=== PATIENT | male | born 1965 | race Caucasian/White ===

== ENCOUNTER 2020-08-27 07:30 | Observation (INO) ==
[2020-08-27] MEDS ORDERED: HYDROmorphone INJ 1 MG/ML SYRINGE IV STA (07:48)
[2020-08-27] MEDS ORDERED: ONDANSETRON INJ 2 MG/ML 2 ML VIAL IV STA (07:48)
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
[2020-08-27 08:12] LABS: Basophils # (auto) 0.02 K/uL (0-0.2); Basophils % (auto) 0.3 %; Eosinophils # (auto) 0.15 K/uL (0-0.5); Eosinophils % (auto) 2.4 %; Hematocrit (blood only) 42.6 % (42-52); Hemoglobin 15.1 g/dL (14.0-18.0); Immature Granulocytes # (auto) 0.01 K/uL (0.00-0.02); Immature Granulocytes % (auto) 0.2 %; Lymphocytes # (auto) 2.77 K/uL (1.2-3.4); Lymphocytes % (auto) 45.1 %; Mean Corpuscular Hemoglobin 31.6 pg (25-34); Mean Corpuscular Hgb Conc 35.4 g/dL (32-36); Mean Corpuscular Volume 89.1 fL (80-100); Mean Platelet Volume 10.4 fL (7.4-10.4); Monocytes # (auto) 0.62 K/uL (0.11-0.59); Monocytes % (auto) 10.1 %; Neutrophils # (auto) 2.57 K/uL (1.4-6.5); Neutrophils % (auto) 41.9 %; Platelet Count 273 K/uL (130-400); RDW Coefficient of Variation 13.1 % (11.5-14.5); RDW Standard Deviation 42.7 fL (36.4-46.3); Red Blood Count 4.78 M/uL (4.7-6.1); White Blood Count 6.14 K/uL (4.8-10.8)
[2020-08-27 08:31] LABS: Albumin Level 4.1 gm/dl (3.4-5.0); BUN Creatinine Ratio 20.5 (10-20); Calcium 9.4 mg/dl (8.5-10.1); Creatinine Clr Calc Pharmacy 92.2 ml/min; Est GFR (African American) 88.1; Potassium 3.7 mmol/L (3.5-5.1)
[2020-08-27 08:34] LABS: Albumin Globulin Ratio 1.2 (0.9-2); Bilirubin,Total 0.8 mg/dl (0.2-1); Globulin 3.4 gm/dl (2.5-4.0); Total Protein 7.5 gm/dl (6.4-8.2)
--- NOTE | 2020-08-27 08:50 | XRay Report ---
XR shoulder LT min 2V routine CLINICAL HISTORY: Left shoulder pain status post trauma COMPARISON: None. DISCUSSION: No acute fractures or dislocations of the left shoulder are visualized. There are mild de generative changes present. There is equivocal slight left lung interstitial thickening. There is acu te fracture the left eighth rib. IMPRESSION: 1. Acute fracture of the left eighth rib 2. No fractures or dislocations of the left shoulder are visualized ACT 112: Negative or not required by law. Electronically signed by: Codey Carter M.D. 08/27/2020 8:48 AM
[2020-08-27] MEDS ORDERED: OPTIRAY 320 100ml IV ONE (09:13)
[2020-08-27] MEDS: HYDROmorphone INJ 0.5 MG/0.5 ML SYR IV PRN ×3 (09:23→12:34)
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
--- NOTE | 2020-08-27 09:34 | CT Scan Report ---
CT OF THE CHEST WITH IV CONTRAST CLINICAL HISTORY: Left-sided chest pain status post trauma COMPARISON STUDY: No previous studies for comparison. TECHNIQUE: Following the IV administration of 93 mL of Optiray-320, CT of the thorax was performed f rom the thoracic inlet to the lung bases. Images are reviewed in the axial, sagittal, and coronal alma cecilia. IV contrast was administered without complication. A dose lowering technique was utilized adher ing to the principles of ALARA. CT DOSE: 1764.95 mGy.cm FINDINGS: Thyroid: There is a 3 mm left lobe thyroid nodule Thoracic aorta: There is minimal ectasia of descending thoracic aorta which measures 36 mm. There is no CT evidence of acute aortic injury. Pulmonary vasculature: The pulmonary trunk is normal in caliber. There are no central filling defects identified to suggest pulmonary embolus. Note that this examination was not protocoled for the evalu ation of pulmonary emboli. HEART: The heart is mildly enlarged. There are coronary artery calcifications. Lungs and pleural spaces: The lungs and pleural spaces are clear. There is no pneumothorax. There are bilateral dependent pulmonary airspace opacities, likely atelectatic. No pneumothorax is visualized Mediastinum: There is no evidence of pathologic adenopathy. There is no evidence of acute mediastinal hematoma Alesia: There is no evidence of pathologic hilar adenopathy Axilla: There is no evidence of pathologic axillary lymphadenopathy Upper abdomen: Partially visualized upper abdominal viscera is within normal limits. Skeletal structures: There are acute fractures of the left eighth through 11th ribs. IMPRESSION: 1. Acute fractures of the left eighth through 11th ribs 2. No evidence of pneumothorax 3. No CT evidence of mediastinal injury 4. Bilateral dependent pulmonary airspace opacities likely atelectatic ACT 112: Negative or not required by law. Electronically signed by: Codey Carter M.D. 08/27/2020 9:33 AM
[2020-08-27] MEDS ORDERED: LIDOCAINE 5% 1 PATCH TD STA (09:36)
[2020-08-27] MEDS ORDERED: KETOROLAC TROMETHAMINE 15 MG/ML VIAL IV ONE (10:18)
[2020-08-27 10:19] LABS: Appearance Urine Clear (Clear); Bilirubin Urine Negative (Negative); Blood Urine Negative (Negative); Color Urine Yellow; Glucose Urine UA Negative (Negative); Ketones Urine Negative (Negative); Leukocyte Esterase Urine Negative (Negative); Nitrite Urine Negative (Negative); Protein Urine Negative (Negative); Specific Gravity Urine > 1.045 (1.000-1.030); Urobilinogen Urine Negative (Negative)
--- NOTE | 2020-08-27 10:30 | History & Physical Report ---
Date of Service August 27, 2020 Assessment & Plan (1) Multiple rib fractures: CT chest on 08/27 showed acute left 8th through 11th rib fractures. No hemothorax or indication of flail chest. - Patient admitted for pain control: * Ketorolac IV PRN * Percocet PO PRN * Acetaminophen PRN * Lidocaine patch * Ice application - Incentive spirometry - Repeat CXR in the AM to make sure there is no pneumothorax or hemothorax. - Hopeful discharge tomorrow with oral and topical pain medication. (2) Hyperlipidemia: - Continue statin (3) DVT prophylaxis: SCDs - Low DVT risk per admission calculator History of Present Illness Primary Care Provider: Smooth Guerrero MD 54yo M w/ hx of HLD who had a mechanical fall today. He slipped on icy concrete steps and fell on his left side. No loss of consciousness and no striking of his head. He had immediate pain in the left side and presented to the ED. The pain is l argely on the left chest with radiation to the back. Pain medication has improved it. Moving makes it worse. He was noted on chest CT to have 3 left rib fractures. No hemothorax. Not on any blood thinner/anticoagulation. Some subjective shortness of breath from the pain. No dizziness, lightheadedness Allergies Allergy/AdvReac Type Severity Reaction Status Date / Time No Known Allergies Allergy Unverified 08/27/20 07:58 Home Medications Medication Instructions Recorded Confirmed Type ascorbic acid (vitamin C) [Vitamin 100 mg PO DAILY 08/27/20 08/27/20 History C] atorvastatin [Lipitor] 10 mg PO DAILY 08/27/20 08/27/20 History cholecalciferol (vitamin D3) 25 mcg PO DAILY 08/27/20 08/27/20 History [Vitamin D3] fexofenadine [Peace] 180 mg PO DAILY 08/27/20 08/27/20 History multivitamin 1 tab PO DAILY 08/27/20 08/27/20 History turmeric 400 mg PO DAILY 08/27/20 08/27/20 History vitamin B complex 1 tab PO DAILY 08/27/20 08/27/20 History Past Med/Surg History Medical History (Updated 08/27/20 @ 10:28 by Kevin Garrison MD) Allergies Hyperlipidemia Family History (Updated 08/27/20 @ 10:39 by Kevin Garrison MD) Father Prostate cancer Social History Smoking Status: Former smoker Tobacco Type: Cigarettes Preferred Language: [place] Feels Safe at Home: Yes Review of Systems Review of Systems: All systems reviewed & are unremarkable except as noted in HPI & below Physical Exam Constitutional: WD/WN, vitals as above Eyes: EOM intact bilaterally; no conjunctival abnormality ENMT: external ear and nose normal, oropharynx normal Neck: trachea midline, no thyromegaly normal visual inspection Respiratory: normal respiratory effort, lungs clear to auscultation no respiratory distress Cardiovascular: RRR, no murmur, no edema Gastrointestinal (Abdomen): Inspection/Auscultation: abdomen normal to inspection; abdomen not distended Musculoskeletal: no cyanosis or clubbing, extremities motor strength 5/5 Head/Neck/Chest: + chest tenderness (Left side) Skin: no rashes, warm and dry Neurologic: moves all extremities and awake Psychiatric: Orientation: alert, oriented to person and cooperative Results & Data Results & Data ([facility]) Vital Signs (Past 12 Hours) Vital Signs Temp Pulse Resp BP Pulse Ox 08/27/20 10:15 63 29 H 95 08/27/20 09:45 66 23 96 08/27/20 09:30 69 20 138/88 90 08/27/20 09:22 87 L 08/27/20 08:30 139/98 90 08/27/20 08:00 63 30 H 111/77 86 L 08/27/20 07:43 58 L 16 157/90 H 94 08/27/20 07:35 58 L 24 98 08/27/20 07:32 36.8 C 60 24 142/88 H 94 PG Care Time/CCT Total # of Minutes Spent Total Time Spent with Patient: Total time spent is greater than 50% in coordination of care (as documented) at patient's floor/unit and/or counseling patient: Coding Level of Care Code 09510 OBS Care - Level 3 Diagnoses Multiple rib fractures S22.49XA Hyperlipidemia E78.5 DVT prophylaxis Z29.9
[2020-08-27] MEDS ORDERED: ALBUTEROL HFA 8 GM INHALER INH PRN (13:00)
[2020-08-27] MEDS ORDERED: ONDANSETRON INJ 2 MG/ML 2 ML VIAL IV PRN (13:00)
[2020-08-27] MEDS ORDERED: ACETAMINOPHEN 325 MG TAB PO PRN (13:00)
[2020-08-27] MEDS: oxyCODONE/ACETAMINOPHEN 5mg/325mg TAB PO PRN ×2 (15:26→19:22)
[2020-08-27] MEDS: KETOROLAC TROMETHAMINE 15 MG/ML VIAL IV PRN ×2 (16:57→22:56)
[2020-08-28] MEDS: oxyCODONE/ACETAMINOPHEN 5mg/325mg TAB PO PRN ×3 (03:03→15:45)
[2020-08-28 05:53] LABS: Hematocrit (blood only) 37.3 % (42-52); Hemoglobin 12.7 g/dL (14.0-18.0); Mean Corpuscular Hemoglobin 30.9 pg (25-34); Mean Corpuscular Volume 90.8 fL (80-100); Mean Platelet Volume 10.2 fL (7.4-10.4); Platelet Count 234 K/uL (130-400); RDW Coefficient of Variation 13.4 % (11.5-14.5); RDW Standard Deviation 44.5 fL (36.4-46.3); Red Blood Count 4.11 M/uL (4.7-6.1); White Blood Count 7.96 K/uL (4.8-10.8)
[2020-08-28 06:20] LABS: BUN Creatinine Ratio 17.5 (10-20); Calcium 8.8 mg/dl (8.5-10.1); Creatinine Clr Calc Pharmacy 83.3 ml/min; Est GFR (African American) 81.7; Est GFR (Non-African American) 70.5; Potassium 3.8 mmol/L (3.5-5.1)
[2020-08-28] MEDS: KETOROLAC TROMETHAMINE 15 MG/ML VIAL IV PRN ×2 (06:43→12:43)
[2020-08-28] MEDS ORDERED: FEXOFENADINE HCL 180 MG TAB PO SCH (09:00)
[2020-08-28] MEDS ORDERED: lisinopril 10 MG TAB PO SCH (09:00)
[2020-08-28] MEDS ORDERED: ATORVASTATIN 10 MG TAB PO SCH (09:00)
[2020-08-28] MEDS ORDERED: MULTIVITAMIN TAB PO SCH (09:00)
[2020-08-28] MEDS ORDERED: LIDOCAINE 5% 1 PATCH TD SCH (09:00)
[2020-08-28] MEDS ORDERED: CHOLECALCIFEROL 1,000 UNITS 25 MCG TAB PO SCH (09:00)
[2020-08-28] MEDS ORDERED: NON-FORMULARY MEDICATION (Ascorbic Acid (Vitamin C) [Vitamin C] 100 mg Tablet) PO SCH (09:00)
--- NOTE | 2020-08-28 09:13 | XRay Report ---
XR chest 2V PA/lateral HISTORY: Fall. Left-sided chest pain. Rib fractures COMPARISON: Chest CT 08/27/2020. FINDINGS: Interval development of a small left pleural effusion which favors a hemothorax given the a cute left lower rib fractures. No pneumothorax. There are low lung volumes. Bibasilar linear densitie s favor subsegmental atelectasis. The upper lung zones remain clear. The heart is normal in size. IMPRESSION: Interval development of a small left pleural effusion which favors a hemothorax given the acute left lower rib fractures. No pneumothorax. This finding was called/faxed to the referring physician follow ing dictation. ACT 112: Negative or not required by law. Electronically signed by: Hugo Pichardo M.D. 08/28/2020 9:11 AM
[2020-08-28] MEDS ORDERED: POLYETHYLENE (MIRALAX) 17 GM PACK PO SCH (12:00)
[2020-08-28 15:38] LABS: Hematocrit (blood only) 37.5 % (42-52); Hemoglobin 13.1 g/dL (14.0-18.0); Mean Corpuscular Hemoglobin 31.7 pg (25-34); Mean Corpuscular Volume 90.8 fL (80-100); Platelet Count 225 K/uL (130-400); RDW Coefficient of Variation 13.5 % (11.5-14.5); RDW Standard Deviation 44.5 fL (36.4-46.3); Red Blood Count 4.13 M/uL (4.7-6.1); White Blood Count 7.57 K/uL (4.8-10.8)
[2020-08-28 15:44] LABS: Mean Corpuscular Hgb Conc 34.9 g/dL (32-36)
--- NOTE | 2020-08-28 15:55 | Discharge Summary ---
Date of Service August 28, 2020 Admission HPI Per Admitting Provider 54yo M w/ hx of HLD who had a mechanical fall today. He slipped on icy concrete steps and fell on his left side. No loss of consciousness and no striking of his head. He had immediate pain in the left side and presented to the ED. The pain is largely on the left chest with radiation to the back. Pain medication has improved it. Moving makes it worse. He was noted on chest CT to have 3 left rib fractures. No hemothorax. Not on any blood thinner/anticoagulation. Some subjective shortness of breath from the pain. No dizziness, lightheadedness Principal Diagnosis Left sided rib fractures, left small pleural effusion-suspect hemothorax Discharge Exam Constitutional WD/WN, vitals as above Eyes + anicteric sclerae and EOM intact bilaterally Neck trachea midline, no thyromegaly Respiratory Auscultation: + diminished lung sounds (at bases bilat); no crackles and no wheezes Cardiovascular RRR, no murmur, no edema Chest (Breasts) Chest: normal inspection of chest Gastrointestinal (Abdomen) normal bowel sounds, soft, nontender, no hepatosplenomegaly Musculoskeletal Extremities: extremities normal to inspection; no cyanosis and no clubbing Shoulder: + joint line tenderness (+TTP anterior shoulder); shoulder normal to inspection, no deformity, no skin erythema, no ecchymosis and normal ROM of shoulder +TTP over left posterior rib cage Skin no rashes, warm and dry Neurologic moves all extremities and awake; no focal motor deficits Psychiatric A+Ox3, euthymic affect Lymphatic no lymphedema Discharge Data Allergies Allergy/AdvReac Type Severity Reaction Status Date / Time Pork/Porcine Containing Allergy Verified 08/27/20 12:00 Products Consultations 08/27/20 10:14 ED Decision to Admit Stat Ordered Studies 08/27/20 07:49 CT abd pelvis IV con only Stat CT chest diagnostic w con Stat CT abd pelvis IV con only CLINICAL HISTORY: Flank pain status post trauma COMPARISON STUDY: None. TECHNIQUE: The patient was scanned in a dynamic helical fashion during intravenous administration of 93 cc of Optiray 320. A dose lowering technique was utilized adhering to the principles of ALARA. CT DOSE: FINDINGS: Lower chest: There are acute fractures of the left eighth, ninth, 10th and 11th ribs. There are bibasilar opacity statistically atelectatic. Liver: The contrast-enhanced liver is normal in size, contour, and attenuation. There is no intrahepatic biliary ductal dilatation. The hepatic veins and portal veins are patent. Gallbladder: Unremarkable. Spleen: Normal in size and attenuation. Pancreas: Unremarkable. Adrenal glands: Unremarkable. Kidneys: There is a 7 mm left renal cyst. There is no CT evidence of acute renal injury. Bowel: There are no transition zones to indicate bowel obstruction. No acute inflammatory changes are visualized. Peritoneum: There is no intraperitoneal free air or abdominal ascites. There are bilateral fat-containing inguinal hernias. There is a small fat-containing um bilical hernia Vasculature: The abdominal aorta is normal in course and caliber. Adenopathy: None. Pelvic viscera: The prostate is enlarged. There is median lobe hypertrophy which bulges the bladder base. This contains a small calcification. Skeletal structures: No destructive osseous lesions are seen. There is a 2 cm sclerotic lesion within the right femoral neck, likely representing a bone i sland. IMPRESSION: 1. Acute fractures of the left eighth through 11th ribs 2. No evidence of acute intra-abdominal or pelvic injury. XR shoulder LT min 2V routine CLINICAL HISTORY: Left shoulder pain status post trauma COMPARISON: None. DISCUSSION: No acute fractures or dislocations of the left shoulder are visualized. There are mild degenerative changes present. There is equivocal slight left lung interstitial thickening. There is acute fracture the left eighth rib. IMPRESSION: 1. Acute fracture of the left eighth rib 2. No fractures or dislocations of the left shoulder are visualized XR chest 2V PA/lateral HISTORY: Fall. Left-sided chest pain. Rib fractures COMPARISON: Chest CT 08/27/2020. FINDINGS: Interval development of a small left pleural effusion which favors a hemothorax given the acute left lower rib fractures. No pneumothorax. There are low lung volumes. Bibasilar linear densities favor subsegmental atelectasis. The upper lung zones remain clear. The heart is normal in size. IMPRESSION: Interval development of a small left pleural effusion which favors a hemothorax given the acute left lower rib fractures. No pneumothorax. This finding was called/faxed to the referring physician following dictation. Hospital Course (1) Multiple rib fractures: Presented with a fall on ice down 3 stairs, landed on left sided ribs and left shoulder CT chest on 08/27 showed acute left 8th through 11th rib fractures. No hemothorax, pneumothorax, or indication of flail chest upon admission. - Patient admitted for pain control: * Ketorolac IV PRN * Percocet PO PRN * Acetaminophen PRN * Lidocaine patch * Ice application - Incentive spirometry - Repeat CXR the next AM showed interval development of a small, left sided likely hemothorax. Hgb was 15 on admission, 12.7 the next AM, then 13.1 later in the day on day of discharge-stable. May have been a bit dehydrated initially. He was tolerating incentive spirometry, pain controlled, not requiring oxygen, doing well. -stable for dc to home with precautions to return if develops worsening SOB, CP, fevers, or lightheadedness -check repeat CXR, CBC on Tuesday and f/u with PCP -Percocet prn pain given at time of discharge (2) Hemothorax on left: as above (3) HTN (hypertension), benign: BPs controlled continue home lisinopril (4) DVT prophylaxis: SCDs - Low DVT risk per admission calculator Dispo-dc to home Total Time Total Time Spent Total Time Spent (In Minutes): 35 min Total Time Includes: Examination of the Patient, Discharge Planning and Medication Reconciliation Discharge Plan Discharge Items Patient Disposition: Home - Self-Care Reason For Visit: RIB FRACTURE, PAIN CONTROL Discharge Diagnosis: Rib fractures, pleural effusion-suspect hemothorax Condition on Discharge: Fair Activity: As commented below Lifting: No more than 5 pounds Bathing: No limitations Exercise/Sports: As tolerated Non-emergency contact: Primary Care Provider Call non-emergency contact if: you have any medication questions, your symptoms worsen, your pain is not controlled, your pain is worsening, your pain is unusual for you, your pain is concerning for you, you have a fever and your temperature is above 101 Follow-up/Referrals: Smooth Guerrero MD [Primary Care Provider] - (Please follow up with your PCP, ALLEN Mccarty, within 1 week. ) Diet: Heart Healthy Ambulatory Orders: Complete Blood Count with Diff (Routine) Timeframe: 4 Days Location: Determined by Patient Ordered By: Aminta Campos XR chest 2V PA/lateral (Routine) Timeframe: 4 Days Location: Determined by Patient Ordered By: Aminta Campos Addtl Attending Provider Instructions: You were admitted with rib fractures for pain control after a fall. Your chest xray did show some fluid around the bottom of the left lung which may be from some bleeding from the injury. If you develop worsening shortness of breath, chest pains, fevers, or lightheadedness, please return to the hospital. You can continue taking Percocet as needed for pain control. You should take Miralax and a stool softener along with this to prevent constipation. Continue using your incentive spirometer 10 times each hour while you're awake to expand your lungs and prevent pneumonia. Have a chest xray and a blood count checked on September 01 with the results to be sent to your PCP. Pending Studies at Discharge: No Stand-Alone Forms: My [facility] Medications and DC Order Prescriptions: New oxycodone-acetaminophen [Percocet] 5-325 mg Tablet 1 - 2 tab PO Q4H PRN (Reason: pain) Qty: 20 RF: 0 polyethylene glycol 3350 [Miralax] 17 gram Powder In Packet 17 g PO DAILY Qty: 14 RF: 0 Continued multivitamin Tablet 1 tab PO DAILY RF: 0 fexofenadine 180 mg Tablet 180 mg PO DAILY RF: 0 Vitamin C 100 mg Tablet 100 mg PO DAILY RF: 0 vitamin B complex Tablet 1 tab PO DAILY RF: 0 cholecalciferol (vitamin D3) [Vitamin D3] 25 mcg (1,000 unit) Capsule 25 mcg PO DAILY RF: 0 turmeric 400 mg Capsule 400 mg PO DAILY RF: 0 lisinopril 10 mg 10 mg PO QAM RF: 0 Discharge Orders: Discharge Order (Routine); Ordered 08/28/20 Ordered By: Aminta Campos Admission Data Admit Date/Time: 08/27/20 10:18 Attending Provider: Aminta Campos Admit Provider: Kevin Garrison Primary Care Provider: Smooth Guerrero Other Providers: Kevin Garrison Coding Level of Care Code 31243 OBS Care - Discharge Diagnoses Multiple rib fractures S22.49XA Hemothorax on left J94.2 HTN (hypertension), benign I10 DVT prophylaxis Z29.9
== END 2020-08-28 17:15 | disposition home or self-care (01) ==
LOC: 3N 07:30 → ED 07:30 → SUATTDRO 10:18 → 3N 12:30